=== PATIENT | male | born 1965 | race Caucasian/White ===

== ENCOUNTER 2023-01-02 21:09 | Inpatient (IN) | payer MEDICARE ==
[~2023-01-02] VITALS: Ht 172.7 cm; Wt 91.2 kg
[2023-01-02 21:35] LABS: BASOPHILS # (AUTO) 0.1 K/UL (0.0-0.2); BASOPHILS % (AUTO) 0.8 % (0.0-2.0); EOSINOPHILS # (AUTO) 0.8 K/uL (0.0-0.7); EOSINOPHILS % (AUTO) 7.4 % (0.0-7.0); HEMOGLOBIN 14.4 g/dL (12.5-16.3); LYMPHOCYTES # (AUTO) 2.3 K/uL (0.8-4.8); LYMPHOCYTES % (AUTO) 20.7 % (20.5-51.5); MEAN CORPUSCULAR HGB CONC 34 g/dL (32.5-36.3); MEAN CORPUSCULAR VOLUME 99.4 fL (73.0-96.2); MONOCYTES # (AUTO) 1.4 K/uL (0.1-1.30); MONOCYTES % (AUTO) 12.4 % (0.0-11.0); NEUTROPHILS # (AUTO) 6.5 K/uL (1.8-8.9); NEUTROPHILS % (AUTO) 58.7 % (38.5-71.5); PLATELET COUNT (AUTO) 204 K/uL (152-348); RED BLOOD CELL COUNT(AUTO) 4.23 MIL/uL (4.06-5.63); RED CELL DISTRIBUTION WIDTH 14.4 % (12.1-16.2); WHITE BLOOD COUNT (AUTO) 11.1 K/uL (3.6-10.2)
[2023-01-02] MEDS ORDERED: OLANZAPINE 10 MG VIAL IM ONE ×4 (21:52→22:15)
[2023-01-02 22:07] LABS: DIFFERENTIAL COMMENT 1
[2023-01-02 22:12] LABS: CARBON DIOXIDE 20 mmol/L (21-32); CHLORIDE 103 mmol/L (98-107); CREATININE 2.9 mg/dL (0.6-1.3); ETHANOL < 3 MG/DL (0-10); GLUCOSE 252 mg/dL (74-106); POTASSIUM 4.3 mmol/L (3.5-5.1); SODIUM SERUM 138 mmol/L (136-145); UREA NITROGEN, BLOOD 71 mg/dL (7-18)
[2023-01-02 22:18] LABS: ALANINE AMINOTRANSFERASE 39 U/L (16-63); ALBUMIN 3.7 g/dL (3.4-5.0); ALKALINE PHOSPHATASE 112 U/L (50-136); ASPARTATE AMINOTRANSFERASE 43 U/L (15-37); BILIRUBIN,DIRECT 0.2 mg/dL (0.0-0.2); BILIRUBIN,TOTAL 0.4 mg/dL (0.2-1.0); CREATINE KINASE, TOTAL 593 U/L (39-308); TOTAL PROTEIN, SERUM 7.5 g/dL (6.4-8.2)
[2023-01-02 22:23] LABS: THYROID STIMULATING HORMONE 1.833 mIU/mL (0.358-3.740)
[2023-01-02 22:34] LABS: ACETAMINOPHEN < 2.0 ug/mL (10-30)
[2023-01-02] MEDS ORDERED: MAGNESIUM SULFATE/D5W 100 ML IV SCH (22:45)
[2023-01-02] MEDS ORDERED: MAGNESIUM SULFATE/D5W 100 ML ONE (23:22)
[2023-01-02] MEDS ORDERED: LORAZEPAM 2 MG/1 ML VIAL IV ONE (23:45)
[2023-01-02] MEDS ORDERED: LORAZEPAM 2 MG/1 ML VIAL ONE (23:58)
[2023-01-03] MEDS ORDERED: DEXTROSE 50% 50 ML DISP.SYRIN IV PRN (01:30)
[2023-01-03] MEDS ORDERED: IV NS 1000 ML 1,000 ML IV PRN (01:30)
[2023-01-03] MEDS ORDERED: hydrALAZINE HCL 20 MG/1 ML VIAL IV PRN (01:30)
[2023-01-03] MEDS ORDERED: ONDANSETRON 4 MG/2 ML VIAL IV PRN (01:30)
[2023-01-03] MEDS ORDERED: ACETAMINOPHEN 325 MG TABLET PO PRN (01:30)
[2023-01-03] MEDS ORDERED: IV NS 1000 ML 1,000 ML IV ONE (01:45)
[2023-01-03] MEDS ORDERED: LORAZEPAM 2 MG/1 ML VIAL ONE ×2 (02:41→08:02)
[2023-01-03] MEDS ORDERED: LORAZEPAM 2 MG/1 ML VIAL IV ONE (02:45)
[2023-01-03 03:03] LABS: *BILIRUBIN,URIN NEGATIVE (NEGATIVE); *BLOOD, URINE NEGATIVE (NEGATIVE); *CLARITY,URINE CLEAR (CLEAR); *COLOR,URINE YELLOW (YELLOW); *KETONES,URINE NEGATIVE (NEGATIVE); *PROTEIN,URINE TRACE (NEGATIVE); *UROBILINOGEN,URINE 0.2 E.U./dl (NORMAL); LEUKOCYTE ESTERASE ,URINE NEGATIVE (NEGATIVE); NITRITE, URINE NEGATIVE (NEGATIVE); PH,URINE 5.5 (5.0-8.0)
[2023-01-03 03:17] LABS: UGLUCOSE 2+ (NEGATIVE)
[2023-01-03 03:31] LABS: *AMPHETAMINE, URINE NEGATIVE (NEGATIVE); *BARBITURATE, URINE NEGATIVE (NEGATIVE); *BENZODIAZEPINE, URINE NEGATIVE (NEGATIVE); *CANNABINOID, URINE POSITIVE (NEGATIVE); *COCCAINE, URINE NEGATIVE (NEGATIVE); *OPIATE, URINE NEGATIVE (NEGATIVE); *PHENCYCLIDINE SCREEN,URINE NEGATIVE (NEGATIVE); FENTANYL, URINE NEGATIVE (NEGATIVE)
[2023-01-03] MEDS ORDERED: ENOXAPARIN SODIUM 100 MG/ML DISP.SYRIN SQ ONE ×2 (06:00→21:25)
[2023-01-03] MEDS ORDERED: ENOXAPARIN SODIUM 30 MG/0.3 ML DISP.SYRIN ONE (07:13)
[2023-01-03] MEDS ORDERED: ENOXAPARIN SODIUM 60 MG/0.6 ML DISP.SYRIN SQ ONE (07:13)
[2023-01-03] MEDS: BLOOD SUGAR DIAGNOSTIC 1 EACH STRIP VI SCH ×5 (07:23→22:21)
[2023-01-03] MEDS ORDERED: INSULIN REGULAR, HUMAN 300 UNIT/3 ML VIAL ONE (07:28)
[2023-01-03] MEDS: INSULIN REGULAR, HUMAN 300 UNIT/3 ML VIAL SQ PRN (07:30)
[2023-01-03] MEDS: LORAZEPAM 2 MG/1 ML VIAL IV PRN ×2 (08:03→22:43)
[2023-01-03 11:30] VITALS: BP 123/61; TEMP 97.2; O2SAT 96
[2023-01-03] MEDS ORDERED: OMEG1CAP40 PO (16:27)
[2023-01-03] MEDS ORDERED: TAMS-3 PO (16:27)
[2023-01-03] MEDS ORDERED: METO50TA16 PO (16:27)
[2023-01-03] MEDS ORDERED: ATOR80TA PO (16:27)
[2023-01-03] MEDS ORDERED: MONT10TA22 PO (16:27)
[2023-01-03] MEDS ORDERED: POTA-88 PO (16:27)
[2023-01-03] MEDS ORDERED: FAMO-132 PO (16:27)
[2023-01-03] MEDS ORDERED: DOCU100T2 PO (16:27)
[2023-01-03] MEDS ORDERED: BUME1TAB8 PO (16:27)
[2023-01-03] MEDS ORDERED: ISOS60TA72 PO (16:27)
[2023-01-03] MEDS ORDERED: PANT40TA49 PO (16:27)
[2023-01-03] MEDS ORDERED: FERR-56 PO (16:27)
[2023-01-03] MEDS ORDERED: SACU1TAB PO (16:27)
[2023-01-03] MEDS ORDERED: CALC0.253 PO (16:27)
[2023-01-03] MEDS ORDERED: HYDR100T27 PO (16:27)
[2023-01-03] MEDS ORDERED: CHOL200026 PO (16:27)
[2023-01-03] MEDS ORDERED: EMPA10TA PO (16:27)
[2023-01-03 16:46] VITALS: BP 151/94; TEMP 97.7; O2SAT 96
[2023-01-03 19:00] VITALS: BP 113/92; TEMP 97.4; O2SAT 98
[2023-01-03] MEDS ORDERED: LAMO200T32 PO (19:39)
[2023-01-03] MEDS ORDERED: ALBU18HF2 IH (20:16)
[2023-01-03] MEDS ORDERED: SERT100T PO (20:16)
[2023-01-03] MEDS ORDERED: DULA0.75 SQ (20:16)
[2023-01-03] MEDS ORDERED: LAMO100T2 PO (20:16)
[2023-01-03] MEDS ORDERED: CLON-418 PO (20:16)
[2023-01-03] MEDS ORDERED: FINE10TA PO (20:16)
[2023-01-03] MEDS ORDERED: ISOS30TA86 PO (20:16)
[2023-01-03] MEDS ORDERED: INSU100V SQ (20:16)
[2023-01-03] MEDS ORDERED: OLAN5TAB3 PO (20:16)
[2023-01-03] MEDS ORDERED: METO5TAB7 PO (20:16)
[2023-01-03] MEDS ORDERED: APIX5TAB PO (20:16)
[2023-01-03] MEDS ORDERED: IPRA0.2S48 NEB (20:16)
[2023-01-03] MEDS ORDERED: LEVA0.6320 IH (20:16)
[2023-01-03] MEDS ORDERED: EMPA25TA PO (20:16)
[2023-01-03] MEDS ORDERED: EVOL420W2 SQ (20:16)
[2023-01-03] MEDS ORDERED: MOME13HF IH (20:16)
[2023-01-03] MEDS ORDERED: ALLO100T PO (20:16)
[2023-01-03] MEDS ORDERED: MULT-465 PO (20:16)
[2023-01-03] MEDS ORDERED: INSU100V7 SQ (20:16)
[2023-01-03] MEDS ORDERED: IPRA12.9 IH (20:16)
[2023-01-03] MEDS ORDERED: UBID200C36 PO (20:16)
[2023-01-03] MEDS ORDERED: ENOXAPARIN SODIUM 100 MG/ML DISP.SYRIN SQ SCH (21:00)
[2023-01-03] MEDS: INSULIN REGULAR, HUMAN 300 UNITS/3 ML VIAL SQ PRN (22:10)
[2023-01-03 22:30] VITALS: BP 176/124; O2SAT 98
[2023-01-03 23:30] VITALS: BP 129/71; O2SAT 95
[2023-01-04 05:26] VITALS: BP 161/75; O2SAT 99
[2023-01-04] MEDS: LORAZEPAM 2 MG/1 ML VIAL IV PRN ×2 (05:31→22:05)
[2023-01-04] MEDS: BLOOD SUGAR DIAGNOSTIC 1 EACH STRIP VI SCH ×4 (05:42→20:51)
[2023-01-04 07:31] LABS: BASOPHILS % (AUTO) 0.6 % (0.0-2.0); EOSINOPHILS # (AUTO) 0.8 K/uL (0.0-0.7); EOSINOPHILS % (AUTO) 9.7 % (0.0-7.0); HEMATOCRIT 41.7 % (36.7-47.1); HEMOGLOBIN 14.5 g/dL (12.5-16.3); LYMPHOCYTES # (AUTO) 1.6 K/uL (0.8-4.8); LYMPHOCYTES % (AUTO) 19.5 % (20.5-51.5); MEAN CORPUSCULAR HEMOGLOBIN 34.5 uug (23.8-33.4); MEAN CORPUSCULAR HGB CONC 35 g/dL (32.5-36.3); MEAN CORPUSCULAR VOLUME 99.5 fL (73.0-96.2); MONOCYTES # (AUTO) 0.9 K/uL (0.1-1.30); MONOCYTES % (AUTO) 11.4 % (0.0-11.0); NEUTROPHILS # (AUTO) 4.9 K/uL (1.8-8.9); NEUTROPHILS % (AUTO) 58.8 % (38.5-71.5); PLATELET COUNT (AUTO) 176 K/uL (152-348); RED BLOOD CELL COUNT(AUTO) 4.19 MIL/uL (4.06-5.63); RED CELL DISTRIBUTION WIDTH 14.2 % (12.1-16.2); WHITE BLOOD COUNT (AUTO) 8.3 K/uL (3.6-10.2)
[2023-01-04 07:40] LABS: DIFFERENTIAL COMMENT 1
[2023-01-04] MEDS ORDERED: FUROSEMIDE 40 MG/4 ML VIAL IV ONE (08:30)
[2023-01-04] MEDS ORDERED: ENOXAPARIN SODIUM 100 MG/ML DISP.SYRIN SQ SCH (09:00)
[2023-01-04 09:20] LABS: ALBUMIN 3.1 g/dL (3.4-5.0); BILIRUBIN,TOTAL 0.3 mg/dL (0.2-1.0); CREATININE 2.2 mg/dL (0.6-1.3); MAGNESIUM 2.5 mg/dL (1.8-2.4); PHOSPHOROUS 3.4 mg/dL (2.5-4.9); POTASSIUM 3.7 mmol/L (3.5-5.1); TOTAL PROTEIN, SERUM 6.4 g/dL (6.4-8.2)
[2023-01-04] MEDS ORDERED: BUME2TAB8 PO (09:41)
[2023-01-04] MEDS ORDERED: LAMO100T17 PO (09:51)
[2023-01-04] MEDS: APIXABAN 5 MG TABLET PO SCH ×2 (10:34→20:46)
[2023-01-04] MEDS: METOPROLOL TARTRATE 50 MG TABLET PO SCH ×2 (11:08→20:45)
[2023-01-04] MEDS: INSULIN REGULAR, HUMAN 300 UNIT/3 ML VIAL SQ PRN ×2 (14:24→20:52)
[2023-01-04 20:00] VITALS: BP 149/89; TEMP 98.3; O2SAT 97
[2023-01-05] VITALS: BP 124/101; TEMP 98.4; O2SAT 98
[2023-01-05 04:00] VITALS: BP 147/90; TEMP 98.4; O2SAT 94
[2023-01-05 06:06] LABS: PTH, INTACT 88 pg/mL (15-65)
[2023-01-05] MEDS: BLOOD SUGAR DIAGNOSTIC 1 EACH STRIP VI SCH ×4 (06:38→20:59)
[2023-01-05 06:49] LABS: BASOPHILS # (AUTO) 0.1 K/UL (0.0-0.2); EOSINOPHILS # (AUTO) 0.8 K/uL (0.0-0.7); EOSINOPHILS % (AUTO) 10.5 % (0.0-7.0); HEMATOCRIT 42.6 % (36.7-47.1); HEMOGLOBIN 14.8 g/dL (12.5-16.3); LYMPHOCYTES # (AUTO) 2.1 K/uL (0.8-4.8); LYMPHOCYTES % (AUTO) 27.2 % (20.5-51.5); MEAN CORPUSCULAR HEMOGLOBIN 34.7 uug (23.8-33.4); MEAN CORPUSCULAR HGB CONC 35 g/dL (32.5-36.3); MEAN CORPUSCULAR VOLUME 99.7 fL (73.0-96.2); MONOCYTES # (AUTO) 1.2 K/uL (0.1-1.30); MONOCYTES % (AUTO) 15.2 % (0.0-11.0); NEUTROPHILS # (AUTO) 3.6 K/uL (1.8-8.9); NEUTROPHILS % (AUTO) 46.1 % (38.5-71.5); PLATELET COUNT (AUTO) 178 K/uL (152-348); RED BLOOD CELL COUNT(AUTO) 4.28 MIL/uL (4.06-5.63); RED CELL DISTRIBUTION WIDTH 14.4 % (12.1-16.2); WHITE BLOOD COUNT (AUTO) 7.8 K/uL (3.6-10.2)
[2023-01-05 06:53] LABS: DIFFERENTIAL COMMENT 1
[2023-01-05 06:59] LABS: CALCIUM 9.4 mg/dL (8.5-10.1); CREATININE 2.1 mg/dL (0.6-1.3); MAGNESIUM 2.4 mg/dL (1.8-2.4); PHOSPHOROUS 3.4 mg/dL (2.5-4.9); POTASSIUM 3.3 mmol/L (3.5-5.1)
[2023-01-05] MEDS ORDERED: CLONIDINE HCL 0.1 MG TABLET PO PRN (07:30)
[2023-01-05] MEDS: INSULIN REGULAR, HUMAN 300 UNIT/3 ML VIAL SQ PRN ×3 (08:24→17:34)
[2023-01-05] MEDS: METOPROLOL TARTRATE 50 MG TABLET PO SCH (08:40)
[2023-01-05] MEDS: APIXABAN 5 MG TABLET PO SCH ×2 (08:41→20:49)
[2023-01-05] MEDS ORDERED: POTASSIUM CHLORIDE 10 MEQ TAB.PRT.SR PO ONE (09:00)
[2023-01-05 11:00] VITALS: BP 149/81; TEMP 98.1; O2SAT 96
[2023-01-05] MEDS: POTASSIUM CHLORIDE 50 ML IV SCH ×2 (15:04→16:34)
[2023-01-05] MEDS: BUMETANIDE 1 MG TABLET PO SCH (15:04)
[2023-01-05] MEDS ORDERED: ALBUTEROL SULFATE 2.5 MG/3 ML NEBU IH PRN (15:30)
[2023-01-05 15:37] LABS: LYMPHOCYTES % (MANUAL) 24 % (20-40); NEUTROPHILS % (MANUAL) 54 % (42-75)
[2023-01-05 15:38] LABS: EOSINOPHILS % (MANUAL) 8 % (0-8); MONOCYTES % (MANUAL) 14 % (2-10)
[2023-01-05 16:30] VITALS: BP 151/95; TEMP 98.5; O2SAT 95
[2023-01-05] MEDS ORDERED: APIXABAN 5 MG TABLET PO SCH (17:00)
[2023-01-05] MEDS ORDERED: ALBUTEROL SULFATE 8 GM HFA.AER.AD IH SCH (17:00)
[2023-01-05] MEDS ORDERED: METOPROLOL TARTRATE 50 MG TABLET PO SCH (17:00)
[2023-01-05] MEDS: SACUBITRIL/VALSARTAN 24 MG-26 TABLET PO SCH (17:00)
[2023-01-05] MEDS: METOPROLOL SUCCINATE XL 50 MG TAB.SR.24H PO SCH (17:09)
[2023-01-05] MEDS: MONTELUKAST SODIUM 10 MG TABLET PO SCH (17:09)
[2023-01-05 20:00] VITALS: BP 138/82; TEMP 97.6; O2SAT 98
[2023-01-05 20:45] VITALS: O2SAT 96
[2023-01-05] MEDS: FAMOTIDINE 20 MG TABLET PO SCH (20:47)
[2023-01-05] MEDS: OLANZAPINE 5 MG TABLET PO SCH (20:48)
[2023-01-05] MEDS: TAMSULOSIN HCL 0.4 MG CAP.SR.24H PO SCH (20:48)
[2023-01-05] MEDS: INSULIN REGULAR, HUMAN 300 UNITS/3 ML VIAL SQ PRN (20:54)
[2023-01-06] VITALS (7 sets, daily range): BP systolic 129–147; BP diastolic 69–92; TEMP 97.7–98.8; O2SAT 96–99
[2023-01-06] MEDS: PANTOPRAZOLE SODIUM 40 MG TABLET.DR PO SCH (07:26)
[2023-01-06] MEDS: BLOOD SUGAR DIAGNOSTIC 1 EACH STRIP VI SCH ×4 (07:40→21:07)
[2023-01-06 07:41] LABS: CALCIUM 9.7 mg/dL (8.5-10.1); CREATININE 2.1 mg/dL (0.6-1.3); POTASSIUM 3.6 mmol/L (3.5-5.1)
[2023-01-06] MEDS: INSULIN REGULAR, HUMAN 300 UNIT/3 ML VIAL SQ PRN ×3 (08:20→16:36)
[2023-01-06] MEDS: FERROUS SULFATE 325 MG TABEC PO SCH (08:20)
[2023-01-06] MEDS: FLUTICASONE/VILANTEROL 1 EACH BLST.W.DEV INH SCH (08:24)
[2023-01-06] MEDS: BUMETANIDE 1 MG TABLET PO SCH (08:25)
[2023-01-06] MEDS: LAMOTRIGINE 100 MG TABLET PO SCH (08:25)
[2023-01-06] MEDS: DOCUSATE SODIUM 100 MG CAPSULE PO SCH (08:25)
[2023-01-06] MEDS: ALLOPURINOL 100 MG TABLET PO SCH (08:25)
[2023-01-06] MEDS: ISOSORBIDE MONONITRATE 60 MG TAB.SR.24H PO SCH (08:27)
[2023-01-06] MEDS: SACUBITRIL/VALSARTAN 24 MG-26 TABLET PO SCH ×2 (08:28→17:19)
[2023-01-06] MEDS: CALCITRIOL 0.25 MCG CAPSULE PO SCH (08:28)
[2023-01-06] MEDS: METOPROLOL SUCCINATE XL 50 MG TAB.SR.24H PO SCH ×2 (08:28→16:52)
[2023-01-06] MEDS ORDERED: SERTRALINE HCL 100 MG TABLET PO SCH (09:00)
[2023-01-06] MEDS ORDERED: Medication Not On Formulary EA (Docusate Sodium 100 MG) PO SCH (09:00)
[2023-01-06] MEDS: APIXABAN 5 MG TABLET PO SCH ×2 (09:27→20:54)
[2023-01-06] MEDS: MONTELUKAST SODIUM 10 MG TABLET PO SCH (17:20)
[2023-01-06] MEDS: TAMSULOSIN HCL 0.4 MG CAP.SR.24H PO SCH (20:52)
[2023-01-06] MEDS: FAMOTIDINE 20 MG TABLET PO SCH (20:52)
[2023-01-06] MEDS: OLANZAPINE 5 MG TABLET PO SCH (20:53)
[2023-01-06] MEDS: LORAZEPAM 1 MG TABLET PO PRN (20:53)
[2023-01-06] MEDS: INSULIN REGULAR, HUMAN 300 UNITS/3 ML VIAL SQ PRN (21:05)
[2023-01-07] MEDS: OLANZAPINE ZYDIS 5 MG TAB.RAPDIS PO PRN (00:05)
[2023-01-07 06:06] VITALS: BP 154/78; TEMP 98.8
[2023-01-07] MEDS: PANTOPRAZOLE SODIUM 40 MG TABLET.DR PO SCH (06:34)
[2023-01-07] MEDS: BLOOD SUGAR DIAGNOSTIC 1 EACH STRIP VI SCH ×4 (06:36→21:04)
[2023-01-07] MEDS: FERROUS SULFATE 325 MG TABEC PO SCH (07:30)
[2023-01-07] MEDS: INSULIN REGULAR, HUMAN 300 UNIT/3 ML VIAL SQ PRN ×4 (07:52→21:07)
[2023-01-07] MEDS: LAMOTRIGINE 100 MG TABLET PO SCH (08:35)
[2023-01-07] MEDS: BUMETANIDE 1 MG TABLET PO SCH (08:35)
[2023-01-07] MEDS: CALCITRIOL 0.25 MCG CAPSULE PO SCH (08:35)
[2023-01-07] MEDS: DOCUSATE SODIUM 100 MG CAPSULE PO SCH (08:39)
[2023-01-07] MEDS: APIXABAN 5 MG TABLET PO SCH ×2 (08:39→21:00)
[2023-01-07] MEDS: SACUBITRIL/VALSARTAN 24 MG-26 TABLET PO SCH ×2 (08:40→17:28)
[2023-01-07] MEDS: ALLOPURINOL 100 MG TABLET PO SCH (08:40)
[2023-01-07] MEDS: ISOSORBIDE MONONITRATE 60 MG TAB.SR.24H PO SCH (08:59)
[2023-01-07] MEDS: METOPROLOL SUCCINATE XL 50 MG TAB.SR.24H PO SCH ×2 (09:00→17:29)
[2023-01-07] MEDS: FLUTICASONE/VILANTEROL 1 EACH BLST.W.DEV INH SCH (09:03)
[2023-01-07 11:54] VITALS: BP 130/82; TEMP 98.1; O2SAT 99
[2023-01-07 16:08] VITALS: BP 129/85; TEMP 97.5; O2SAT 98
[2023-01-07] MEDS: MONTELUKAST SODIUM 10 MG TABLET PO SCH (18:29)
[2023-01-07 20:00] VITALS: BP 150/97; TEMP 98.4; O2SAT 98
[2023-01-07] MEDS: TAMSULOSIN HCL 0.4 MG CAP.SR.24H PO SCH (21:00)
[2023-01-07] MEDS: FAMOTIDINE 20 MG TABLET PO SCH (21:00)
[2023-01-07] MEDS: OLANZAPINE 5 MG TABLET PO SCH (21:00)
[2023-01-07] MEDS: LORAZEPAM 1 MG TABLET PO PRN (22:44)
[2023-01-08] VITALS (7 sets, daily range): BP systolic 132–143; BP diastolic 75–87; TEMP 80.1–98.3; O2SAT 96–98
[2023-01-08] MEDS: MORPHINE SULFATE 2 MG/1 ML DISP.SYRIN IVP PRN ×2 (02:43→17:29)
[2023-01-08] MEDS: FERROUS SULFATE 325 MG TABEC PO SCH (06:41)
[2023-01-08] MEDS: PANTOPRAZOLE SODIUM 40 MG TABLET.DR PO SCH (06:41)
[2023-01-08] MEDS: BLOOD SUGAR DIAGNOSTIC 1 EACH STRIP VI SCH ×4 (06:53→20:52)
[2023-01-08] MEDS: INSULIN REGULAR, HUMAN 300 UNIT/3 ML VIAL SQ PRN ×3 (08:32→17:52)
[2023-01-08 09:07] LABS: A/G RATIO 1.3 (0.7-1.7); ALBUMIN 3.3 g/dL (2.9-4.4); ALPHA-1-GLOBULIN 0.2 g/dL (0.0-0.4); ALPHA-2-GLOBULIN 0.7 g/dL (0.4-1.0); BETA GLOBULIN 0.9 g/dL (0.7-1.3); GAMMA GLOBULIN 0.8 g/dL (0.4-1.8); GLOBULIN, TOTAL 2.6 g/dL (2.2-3.9); M-SPIKE Not Observed g/dL (Not Observed)
[2023-01-08] MEDS: CALCITRIOL 0.25 MCG CAPSULE PO SCH (09:23)
[2023-01-08] MEDS: BUMETANIDE 1 MG TABLET PO SCH (09:23)
[2023-01-08] MEDS: SACUBITRIL/VALSARTAN 24 MG-26 TABLET PO SCH ×2 (09:23→17:29)
[2023-01-08] MEDS: DOCUSATE SODIUM 100 MG CAPSULE PO SCH (09:24)
[2023-01-08] MEDS: ISOSORBIDE MONONITRATE 60 MG TAB.SR.24H PO SCH (09:24)
[2023-01-08] MEDS: LAMOTRIGINE 100 MG TABLET PO SCH (09:24)
[2023-01-08] MEDS: ALLOPURINOL 100 MG TABLET PO SCH (09:24)
[2023-01-08] MEDS: FLUTICASONE/VILANTEROL 1 EACH BLST.W.DEV INH SCH (09:25)
[2023-01-08] MEDS: METOPROLOL SUCCINATE XL 50 MG TAB.SR.24H PO SCH ×2 (09:25→17:29)
[2023-01-08] MEDS: APIXABAN 5 MG TABLET PO SCH ×2 (09:26→20:50)
[2023-01-08] MEDS: LORAZEPAM 1 MG TABLET PO PRN (17:28)
[2023-01-08] MEDS: MONTELUKAST SODIUM 10 MG TABLET PO SCH (17:28)
[2023-01-08] MEDS: OLANZAPINE ZYDIS 5 MG TAB.RAPDIS PO PRN (18:20)
[2023-01-08] MEDS: INSULIN REGULAR, HUMAN 300 UNITS/3 ML VIAL SQ PRN (20:51)
[2023-01-08] MEDS: TAMSULOSIN HCL 0.4 MG CAP.SR.24H PO SCH (20:52)
[2023-01-08] MEDS: FAMOTIDINE 20 MG TABLET PO SCH (20:53)
[2023-01-08] MEDS ORDERED: OLANZAPINE 5 MG TABLET PO SCH (21:00)
[2023-01-09] VITALS: BP 141/75; TEMP 98; O2SAT 98
[2023-01-09 04:00] VITALS: BP 144/65; TEMP 98.1; O2SAT 97
[2023-01-09] MEDS: BLOOD SUGAR DIAGNOSTIC 1 EACH STRIP VI SCH (06:46)
[2023-01-09] MEDS: PANTOPRAZOLE SODIUM 40 MG TABLET.DR PO SCH (06:49)
[2023-01-09] MEDS: FERROUS SULFATE 325 MG TABEC PO SCH (06:49)
[2023-01-09 07:27] LABS: BASOPHILS # (AUTO) 0.1 K/UL (0.0-0.2); BASOPHILS % (AUTO) 0.8 % (0.0-2.0); EOSINOPHILS # (AUTO) 0.6 K/uL (0.0-0.7); HEMATOCRIT 39.8 % (36.7-47.1); HEMOGLOBIN 13.9 g/dL (12.5-16.3); LYMPHOCYTES # (AUTO) 1.9 K/uL (0.8-4.8); LYMPHOCYTES % (AUTO) 27.1 % (20.5-51.5); MEAN CORPUSCULAR HEMOGLOBIN 34.3 uug (23.8-33.4); MEAN CORPUSCULAR HGB CONC 35 g/dL (32.5-36.3); MEAN CORPUSCULAR VOLUME 97.8 fL (73.0-96.2); NEUTROPHILS # (AUTO) 3.4 K/uL (1.8-8.9); NEUTROPHILS % (AUTO) 49.1 % (38.5-71.5); PLATELET COUNT (AUTO) 180 K/uL (152-348); RED BLOOD CELL COUNT(AUTO) 4.07 MIL/uL (4.06-5.63); RED CELL DISTRIBUTION WIDTH 14.2 % (12.1-16.2)
[2023-01-09 07:32] LABS: DIFFERENTIAL COMMENT 1
[2023-01-09 07:35] LABS: NEUTROPHILS % (MANUAL) 0 % (42-75)
[2023-01-09 07:36] LABS: LYMPHOCYTES % (MANUAL) 0 % (20-40)
[2023-01-09 07:40] LABS: BILIRUBIN,TOTAL 0.4 mg/dL (0.2-1.0); CALCIUM 9.7 mg/dL (8.5-10.1); CREATININE 2.4 mg/dL (0.6-1.3); MAGNESIUM 2.3 mg/dL (1.8-2.4); PHOSPHOROUS 3.9 mg/dL (2.5-4.9); TOTAL PROTEIN, SERUM 6.6 g/dL (6.4-8.2)
[2023-01-09] MEDS: SACUBITRIL/VALSARTAN 24 MG-26 TABLET PO SCH (08:57)
[2023-01-09] MEDS: ALLOPURINOL 100 MG TABLET PO SCH (08:57)
[2023-01-09] MEDS: FLUTICASONE/VILANTEROL 1 EACH BLST.W.DEV INH SCH (08:57)
[2023-01-09] MEDS: CALCITRIOL 0.25 MCG CAPSULE PO SCH (08:57)
[2023-01-09] MEDS: ISOSORBIDE MONONITRATE 60 MG TAB.SR.24H PO SCH (08:58)
[2023-01-09] MEDS: APIXABAN 5 MG TABLET PO SCH (08:58)
[2023-01-09] MEDS: LAMOTRIGINE 100 MG TABLET PO SCH (08:58)
[2023-01-09 08:59] VITALS: BP 139/75
[2023-01-09] MEDS: METOPROLOL SUCCINATE XL 50 MG TAB.SR.24H PO SCH (08:59)
[2023-01-09] MEDS: DOCUSATE SODIUM 100 MG CAPSULE PO SCH (09:05)
[2023-01-09] MEDS ORDERED: POTASSIUM CHLORIDE 20 MEQ POWDER PACKET GT ONE (09:45)
[2023-01-09] MEDS: BUMETANIDE 1 MG TABLET PO SCH (10:30)
== END 2023-01-09 10:50 | DRG 682 ==
LOC: ER 21:13 → TRANSITION 01-03 01:34 → TELE3 01-03 10:32
PROVIDERS: ADMIT Internal Medicine; ATTEND Nurse Practitioner Acute Care
DX: N17.0 Acute kidney failure with tubular necrosis (principal); I21.A1 Myocardial infarction type 2; I48.20 Chronic atrial fibrillation, unspecified; M62.82 Rhabdomyolysis; I42.0 Dilated cardiomyopathy; I47.20 Ventricular tachycardia, unspecified; F31.64 Bipolar disorder, current episode mixed, severe, with psychotic features; E83.52 Hypercalcemia; N18.4 Chronic kidney disease, stage 4 (severe); D64.9 Anemia, unspecified; E11.22 Type 2 diabetes mellitus with diabetic chronic kidney disease; Z79.01 Long term (current) use of anticoagulants; Z79.4 Long term (current) use of insulin; I44.7 Left bundle-branch block, unspecified; G47.00 Insomnia, unspecified; E86.9 Volume depletion, unspecified; I50.9 Heart failure, unspecified; F29 Unspecified psychosis not due to a substance or known physiological condition; Z20.822 Contact with and (suspected) exposure to COVID-19; I25.10 Atherosclerotic heart disease of native coronary artery without angina pectoris; N25.81 Secondary hyperparathyroidism of renal origin; Z79.899 Other long term (current) drug therapy
CPT/HCPCS: 36415; 70030-TC; 70450; 71045; 76770; 82652; 83735; 83970; 84100; 84155; 84165; 84443; 84484; 85025; 93005; 93307; 94660; A4663; G0378; G0480; J0360; J1650; J1815; J1940; J2060; J2270; J2358; J3475; J3480; J7040; J8499